=== PATIENT | male | born 1945 | race Caucasian/White ===

== ENCOUNTER → 2019-10-08 | Outpatient (CLI) | payer OTHER, MEDICARE | LOC: MRI 09:31 | PROVIDERS: ATTEND Family Medicine | DX: G45.9 Transient cerebral ischemic attack, unspecified (principal); R47.01 Aphasia; J98.4 Other disorders of lung ==

== ENCOUNTER → 2019-10-30 | Outpatient (CLI) | payer OTHER, MEDICARE | LOC: CV 08:56 | PROVIDERS: ATTEND Family Medicine | DX: I08.1 Rheumatic disorders of both mitral and tricuspid valves (principal); I63.9 Cerebral infarction, unspecified; I10 Essential (primary) hypertension; E78.5 Hyperlipidemia, unspecified; Z95.0 Presence of cardiac pacemaker ==